=== PATIENT | female | born 1995 | race Caucasian/White ===

== ENCOUNTER 2021-04-18 17:23 | Emergency (ER) | payer OTHER ==
[2021-04-18 23:09] LABS: HEMOGLOBIN 15.6 gm/dl (12.3-15.3); RED BLOOD COUNT 5.02 M/UL (4.00-5.10); WHITE BLOOD COUNT 7.3 K/UL (4.5-11.0)
[2021-04-18 23:51] LABS: BUN/CREATININE RATIO 21 (0-10)
== END 2021-04-19 05:20 | disposition home or self-care (01) ==
LOC: ER1 17:23
PROVIDERS: Family Medicine
DX: R09.1 Pleurisy (principal); G43.909 Migraine, unspecified, not intractable, without status migrainosus
CPT/HCPCS: 71045; 80053; 82550; 82553; 83874; 84484; 84703; 85025; 85379; 93005; 94760; 99285; Q9967